=== PATIENT | female | born 1980 | race Caucasian/White ===

== ENCOUNTER 2016-11-02 11:50 | Emergency (ER) | payer SELFPAY ==
[2016-11-02 13:26] VITALS: BP 112/64
--- NOTE | 2016-11-02 14:01 | Diagnostic Imaging Report ---
STEPHEN DONNELLY [facility] [id number] [facility] [address] [address] Report Submission Date: November 02, 2016 1:31:13 PM CDT Patient Study Name: ROSSY MAYA Date: November 02, 2016 12:59:24 PM CDT Modality Type: CR Gender: F Description: ABDOMEN : 82 Institution: [facility] Physician: STEPHEN DONNELLY Clinical history: Foreign body Technique ap supine radiograph of the abdomen Findings: The bowel gas pattern is nonspecific. No renal calcifications are seen. Thoracolumbar levoscoliosis is present.. No abdominal masses identified. Retained fecal material is present in the left colon. Impression: Negative KUB Scoliosis Electronically signed on November 02, 2016 1:31:13 PM CDT by: Rodger MARTINEZ
--- NOTE | 2016-11-02 14:05 | ED Physician Documentation ---
Female Urogenital Problems - HISTORIAN Historian: patient - HPI Stated Complaint: FB IN VAGINA Chief Complaint: Female Urogenital Problems Additional Information: Pt. is brought in by law enforcement who was found on camera to insert something into her vagina after being arrested for an unrelated crime. Onset: hours (1/2) Time of Arrival to the ED: 11:50 Location of Pain: vaginal pain Front/Back of Body, Lg (Color): 1 - pain Further Comments: no - Vaginal Bleeding Para: 5 Sexual History: pain w/ intercourse - Associated Symptoms Urinary Symptoms: none - ROS CONST: other (Feels as if she needs to urinate and move her bowels. Describes vaginal pain, not relieved by urination. Vaginal pain and sensation of having to move bowels both resolved by removal of foreign body.) GI/: denies: nausea, vomiting, decreased appetite, diarrhea, black stools, bloody stools CVS/RESP: none EYES/ENT: none NEURO/PSYCH: none MS/SKIN/LYMPH: none - PAST HX Past History: other (anxiety) Other History: other (depression) Surgeries/Procedures: BTL Immunizations: referred to PCP Allergies/Adverse Reactions: Allergies Allergy/AdvReac Type Severity Reaction Status Date / Time hydrocodone bitartrate Allergy Rash Verified 11/02/16 12:33 [From Vicodin] Home Medications: Ambulatory Orders Medication Instructions Recorded Alprazolam [Xanax] 2 mg PO BID 11/02/16 Escitalopram Oxalate [Lexapro] 20 mg PO DAILY 11/02/16 Hydroxyzine Pamoate [Vistaril] 25 mg PO QID PRN 11/02/16 - SOCIAL HX Smoking History: cigarettes Alcohol Use: none Drug Use: marijuana, methamphetamines - FAMILY HX Family History: none - VITAL SIGNS Vital Signs: Vital Signs Temp Pulse Resp BP Pulse Ox 98.2 F 108 H 16 107/52 97 11/02/16 12:39 11/02/16 12:39 11/02/16 12:39 11/02/16 12:39 11/02/16 12:39 - REVIEWED ASSESSMENTS Nursing Assessment Reviewed: Yes Vitals Reviewed: Yes Progress - Results/Orders Results/Orders: KUB ordered - Progress Progress: Pt. gave verbal permission to me in the presence of nurse Adilia Braun for vaginal examination for suspected foreign body. Present in room during the examination were myself, the patient and Adilia Braun RN. Examination revealed a metallic box approximately 5 cm by 3 cm by 1 cm in vaginal cavity. It was retrieved at 1215 by myself under direct visualization and placed by myself in a specimen bag. This bag was in my possession continuously from the time of removal and did not leave my sight or possession until it was transferred to officer luci Peck #15 at 1227. Examination by officer Reynold of the contents of the box found 3 rectangular green tablets. Officer Reynold asked me for assistance in identification. Markings, shape and color of tablets consistent with alprazolam 2 mg. Pt. admits she has a prescription for these. Box also contained a small plastic bag with a white powder in it. The box and it's contents were entered into evidence bags by officer Reynold. Chain of custody was maintained at all times. Critical Care Note - Critical Care Note Total Time (mins): 0 ED Results Lab/Radiology - Lab Results Lab Results: none ordered - Radiology Radiology Impressions: KUB neg for any foreign body - Orders Orders: ED Orders Category Date Time Status KUB [ABDOMEN 1 VIEW] [RAD] Stat Exams 11/02/16 Ordered Chem Sticks Med 11/02/16 17:00 Ordered 1 each CHEMQID Female Urogenital Problems - EXAM General Appearance: alert, moderate distress (secondary to urogenital discomfort ) Pelvic: external exam nml, other (foreign body in vaginal cavity as described in progress section). No: vaginal discharge, active bleeding, blood in vaginal vault Neuro: oriented X3, motor nml, other (anxious) Discharge Clincal Impression: Vaginal foreign body Qualifiers: Encounter type: initial encounter Qualified Code(s): T19.2XXA - Foreign body in vulva and vagina, initial encounter Referrals: Primary Doctor,No [Primary Care Provider] - 2 Days Home Medications: Ambulatory Orders Alprazolam [Xanax] 2 mg PO BID 11/02/16 Escitalopram Oxalate [Lexapro] 20 mg PO DAILY 11/02/16 Hydroxyzine Pamoate [Vistaril] 25 mg PO QID PRN 11/02/16 Comments: Pt. discharged in stable condition to custody of law enforcement. Condition: Stable Disposition: 01 HOME, SELF-CARE Decision to Admit: NO Decision Time: 13:20
== END 2016-11-02 13:21 | disposition home or self-care (01) ==
LOC: ED 11:50
DX: T19.2XXA Foreign body in vulva and vagina, initial encounter (principal); X58.XXXA Exposure to other specified factors, initial encounter; Y93.9 Activity, unspecified; Y99.9 Unspecified external cause status
CPT/HCPCS: 74000; 99283